=== PATIENT | female | born 1960 | race Caucasian/White ===

== ENCOUNTER 2017-02-03 09:55 | Emergency (ER) | payer BC ==
[2017-02-03] MEDS ORDERED: NS 0.9% 1000 ML* 1,000 ML IV SCH ×2 (10:30→10:45)
[2017-02-03] MEDS ORDERED: Aspirin Low Dose CHEW TAB* 81 MG PO ONE (10:44)
[2017-02-03] MEDS ORDERED: Nitroglycerin TAB 0.4 MG* 0.4 MG TAB SL ONE (10:44)
[2017-02-03 11:23] LABS: Hematocrit 44 % (35-47); Hemoglobin 14.7 g/dl (12.0-16.0); Mean Corpuscular HGB Conc 33 g/dl (31-36); Mean Corpuscular Hemoglobin 30 pg (27-31); Mean Corpuscular Volume 90 fL (80-97); Mean Platelet Volume 10 um3 (7.4-10.4); Red Blood Count 4.89 10^6/ul (4.0-5.4); Red Cell Distribution Width 13 % (10.5-15); White Blood Count 6.6 10^3/ul (3.5-10.8)
[2017-02-03 11:27] LABS: Urine Bilirubin Negative (Negative); Urine Glucose Negative (Negative); Urine Nitrite Negative (Negative)
[2017-02-03 11:43] LABS: Albumin 4.7 g/dL (3.2-5.2); BUN/Creatinine Ratio 22.8 (8-20); C Reactive Protein 5.88 mg/L (< 5.00); Calcium 10.4 mg/dL (8.6-10.3); EGFR African American 97.2 (>60); EGFR Non-African American 75.6 (>60); Globulin 3.5 g/dL (2-4); Magnesium 2.2 mg/dL (1.9-2.7); Total Bilirubin 0.4 mg/dL (0.2-1.0); Total Protein 8.2 g/dL (6.4-8.9)
[2017-02-03] MEDS ORDERED: Iohexol 350* (CONTRAST) 500 ML MDV IV ONE (11:47)
[2017-02-03 12:28] LABS: TSH (Thyroid Stimulating Horm) 1.25 mcIU/mL (0.34-5.60)
[2017-02-03 12:34] LABS: Potassium 3.9 mmol/L (3.5-5.0)
--- NOTE | 2017-02-03 13:26 | RAD ---
INDICATION: Chest pain. COMPARISON: Comparison is made with a prior CT angiogram of the chest from February 03, 2017. TECHNIQUE: Multiple real-time images of the right upper quadrant were obtained. FINDINGS: The gallbladder appear normal. No gallbladder wall thickening or pericholecystic fluid is present. No intra or extrahepatic ductal distention is present. The common bile duct measured 0.4 cm in diameter. The liver is normal in size and increased in echogenicity most consistent with fatty infiltration. There is a small hypoechoic nodule present in the inferior portion of the left hepatic lobe measuring 1.0 x 1.9 x 1.0 cm in size. No correlate is seen on the CT angiogram of the chest of the same day. The pancreas is partially obscured by overlying bowel gas. The right kidney is normal in size without evidence for hydronephrosis. IMPRESSION: 1. NORMAL EXAMINATION OF THE GALLBLADDER. 2. FINDINGS SUGGESTIVE OF HEPATIC STEATOSIS. 3. SMALL HYPOECHOIC NODULE IN THE INFERIOR PORTION OF THE LEFT HEPATIC LOBE POSSIBLY REPRESENTING FOCAL FATTY SPARING ALTHOUGH NONSPECIFIC. RECOMMEND EITHER A FOLLOW-UP MRI OF THE LIVER OR A FOLLOW-UP ULTRASOUND IN 6 MONTHS TIME FOR FURTHER CHARACTERIZATION.
--- NOTE | 2017-02-03 13:29 | RAD ---
Indication: Chest pain, history of breast cancer. Contrast: 74 mL of Omnipaque 350. CTA of the chest was performed with IV contrast administration. Coronal and sagittal reconstructed images were obtained. The pulmonary arterial tree is well opacified. There are no filling defects present to suggest pulmonary embolus. Inferior thyroid lobes are unremarkable. No mediastinal or hilar adenopathy is noted. The heart demonstrates no pericardial effusion. The trachea and major bronchi appear patent. The lung islas demonstrate no evidence of pleural fluid, nodules or masses. The thoracic aorta demonstrates no thoracic aortic aneurysm or aortic dissection. IMPRESSION: No evidence of pulmonary embolus is noted.
--- NOTE | 2017-02-03 14:21 | HP ---
HISTORY AND PHYSICAL -> (Changed to Consultation): DATE OF ADMISSION: 02/03/17 CONSULTING PROVIDER: Kenneth Ortiz MD PRIMARY CARE PHYSICIAN: Dr. Petersen ([place]). CHIEF COMPLAINT: Dull aching right-sided chest pain. HISTORY OF PRESENT ILLNESS: Alma Rosa Díaz is a 56-year-old female with past medical history of hypertension; breast cancer, status post mastectomy, radiation and chemotherapy in 2005, presenting with complaint of right-sided dull aching chest pain that she has had for some time now. She attests that it is most usually stress related. She did over the summer have some sensations in her right upper quadrant abdomen in the lower portion of her bilateral ribcages that was a similar dull ache and she had a bone scan with a [place] breast cancer specialist that was reportedly negative for any acute findings. The patient cannot really attest to why she is coming in today versus last week , last month, or over the last year except stating that she feels like the pain gets worse when she is stressed out and she is not able to handle her stress as well as she has been in the past. She stopped her Wellbutrin about 1 year ago, which she had been taking after the side effect of some of the chemotherapy agents, but she denies any mood disorder or depression, SI, HI. The patient intentionally lost 35 pounds since June 2016 while on a diet. She denies shortness of breath, nausea, vomiting. She has some chronic mid back complaints with some tenderness to palpation in her mid thoracic spine, which has been there for quite some time. She attests to "ear plugging" bilaterally for 1 year, which she attributes to possible seasonal allergies. She denies night sweats. She sleeps restlessly, but denies paroxysmal nocturnal dyspnea or orthopnea. Does not really exercise much, but does not get short of breath during regular daily activities. The patient travels a lot in her job at [employer] including yearly travel to [place], [place] ([place] most recently in [place] most recently, last travel was over the summer. Denies any cough. The patient was evaluated by the emergency room who has ordered a right upper quadrant ultrasound and a CT angiogram of her chest to rule out gallstone pathology, pulmonary embolism, or other malignancy related issues. Initial troponin is negative. EKG, no ischemic changes. She is being admitted to observation status for ACS rule out. PAST MEDICAL HISTORY: Hypertension; right-sided breast cancer, status post partial mastectomy, radiation and chemotherapy (2005). MEDICATIONS: 1. Valsartan 160 mg/25 mg hydrochlorothiazide. 2. Aspirin 81 mg daily. ALLERGIES: She has allergies to ERYTHROMYCIN. SOCIAL HISTORY: Nonsmoker except for a few cigarettes during teenage years. No significant alcohol use. Works at [employer]. Her medical surrogate (pending). FAMILY HISTORY: Dad with prostate cancer. Mother with breast cancer, skin cancer, throat cancer, still alive at age 83. REVIEW OF SYSTEMS: Negative 14-point review of systems except as per HPI. PHYSICAL EXAMINATION GENERAL: No acute distress. VITAL SIGNS: Blood pressure 118/82, satting 100% on room air, respiratory rate 18, heart rate is 73, temperature 97.3. HEENT: Normocephalic, atraumatic. Pupils equally round and reactive to light. Extraocular motions intact. NECK: No cervical lymphadenopathy. PULMONARY: Clear to auscultation bilaterally with no wheezing, rales, or rhonchi. CARDIOVASCULAR: Regular rate and rhythm. No murmurs, rubs, or gallops. ABDOMEN: Soft, nontender, nondistended. No Hickman's sign. No rebound. No guarding. The patient did attest to some discomfort with sonographic right upper quadrant testing. EXTREMITIES: Warm, well perfused. No peripheral edema. NEURO: Tenderness to palpation of mid thoracic spine. SKIN: No rashes. LABORATORY DATA: White count 6.6, hemoglobin 14.7, hematocrit 44, platelets 271. INR 0.85. Sodium 137, potassium 3.9, chloride 101, carbon dioxide 26, BUN 18, creatinine 0.79. Lactic acid 1.6. Calcium is slightly elevated at 10.4, alk phos 130 slightly elevated. CK-MB 6.5. CRP 5.88. Troponin 0.00. Albumin 4.7. Lipase 33. TSH 1.25. Urinalysis within normal limits except low specific gravity of 1.009. IMAGING: Still pending right upper quadrant ultrasound, CTA. ASSESSMENT AND PLAN: Alma Rosa Díaz is a 56-year-old female with past medical history of right-sided breast cancer, hypertension, presenting with right-sided dull achy chest complaints that has been present for many months if not year or more. She is still awaiting her CTA of her chest given her significant travel history, though nothing for several months now and the right upper quadrant ultrasound, this gave gallbladder pathology. Possible slightly elevated T-bili was within normal limits. Symptoms appear stress related. We will follow the above imaging. She is being admitted to observation status for ACS rule out, though she was initially insistent on getting a stress test during this one admission prior to planned travel, but now is attesting that she would prefer to follow up as an outpatient. We may be able to discharge the patient later in the day after repeat troponins and further imaging workup is done with cardiology outpatient followup. Continue her aspirin 81 and valsartan 160/25 mg hydrochlorothiazide tomorrow if she is still in the hospital. She is being admitted to the observation status. We will ask her about her medical surrogate upon return from CT[facility]. She is a full code. ADDENDUM: CTA did not demonstrate evidence of Pulmonary Embolism. Gall bladder ultrasound with normal Gall Bladder; findings suggestive of hepatic steatosis and a small hypoechoic nodule in the inferior portion of the left hepatic lobe possibly representing focal fatty sparing but with recommmended follow-up ultrasound or MRI of liver in 6 months. Pts repeat troponin was negative and she changed her mind, wishing to pursue further cardiac evaluation as an outpatient. Pt was never transferred from the ED room and was discharged by ED physician. [id number]/[facility] #: [id number] HANSEL
[2017-02-03 15:46] VITALS: BP 116/78
--- NOTE | 2017-02-03 16:31 | ED ---
Holland Crews Benjamin, scribed for Kyle Holm MD on 02/03/17 at 1045 . HPI Chest Pain - HPI Summary HPI Summary: 56yo female c/o intermittent mid sternal chest discomfort for weeks that seems to be triggered by stress. Then this Tuesday, pt had an episode of sharp CP in the right side that was more intense than her other episodes of chest discomfort. CP occurred immediately after a stressful episode. Pt states that she has also been having midline upper back pain since then too. Sharp CP is gone now, but pt is still having some chest discomfort. CP did not radiate to neck or arms, and nothing seems to make the chest discomfort better or worse besides stress. Pt also has little leg swelling as baseline, but denies any acute leg swelling. Hx of breast CA and HTN. Pt states her job is very stressful. Denies Abdominal pain, SOB, or dizziness, but reports mild nausea. Pt travels internationally often for her job. Last international travel was this summer. - History of Current Complaint Chief Complaint: EDChestPainROMI Time Seen by Provider: 02/03/17 10:10 Hx Obtained From: Patient Onset/Duration: Started Days Ago - 2 days ago Timing: Lasting Minutes Initial Severity: Moderate Current Severity: Mild Pain Intensity: 5 Pain Scale Used: 0-10 Numeric Chest Pain Location: Right Anterior Chest Pain Radiates: No Character: Sharp/Stabbing - sharp Aggravating Factor(s): Other: - stress Alleviating Factor(s): Nothing Associated Signs and Symptoms: Positive: Nausea, Other: - intermittent chest discomfort. Negative: Shortness of Breath, Swelling, Diaphoresis, Abdominal Pain, Calf Pain/Swelling, Vomiting - Allergy/Home Medications Allergies/Adverse Reactions: Allergies Allergy/AdvReac Type Severity Reaction Status Date / Time Erythromycin Allergy Hives Verified 02/03/17 09:58 Home Medications: Home Medications Valsartan/HCTZ 160/25(NF) [Diovan Hct 160/25(NF)] 1 tab PO DAILY 02/03/17 [ History Confirmed 02/03/17] PMH/Surg Hx/FS Hx/Imm Hx Cardiovascular History: Reports: Hx Hypertension - Cancer History Cancer Type, Location and Year: breast cancer right - Surgical History Surgery Procedure, Year, and Place: partial mastectomy, chemo & radiation Infectious Disease History: Yes Infectious Disease History: Denies: Hx Clostridium Difficile, Hx Hepatitis, Hx Human Immunodeficiency Virus (HIV), Hx of Known/Suspected MRSA, Hx Shingles, Hx Tuberculosis, Hx Known/ Suspected VRE, Hx Known/Suspected VRSA, History Other Infectious Disease, Traveled Outside the [place] in Last 30 Days - Family History Known Family History: Positive: Hypertension - Social History Occupation: Employed Full-time Alcohol Use: None Substance Use Type: Reports: None Smoking Status (MU): Never Smoked Tobacco Review of Systems Constitutional: Negative Negative: Skin Diaphoresis Eyes: Negative ENT: Negative Positive: Chest Pain Negative: Shortness Of Breath Positive: Nausea. Negative: Abdominal Pain Genitourinary: Negative Positive: Myalgia - back pain Skin: Negative Neurological: Negative Psychological: Normal All Other Systems Reviewed And Are Negative: Yes Physical Exam Triage Information Reviewed: Yes Vital Signs On Initial Exam: Initial Vitals Temp Pulse Resp BP Pulse Ox 97.3 F 87 16 142/85 96 02/03/17 09:58 02/03/17 09:58 02/03/17 09:58 02/03/17 09:58 02/03/17 09:58 Vital Signs Reviewed: Yes Appearance: Positive: Well-Appearing, No Pain Distress, Well-Nourished Skin: Positive: Warm, Skin Color Reflects Adequate Perfusion, Dry Head/Face: Positive: Normal Head/Face Inspection Eyes: Positive: EOMI, JAY ENT: Positive: Normal ENT inspection Neck: Positive: Supple, Nontender Respiratory/Lung Sounds: Positive: Clear to Auscultation, Breath Sounds Present Cardiovascular: Positive: RRR Abdomen Description: Positive: Nontender, Soft Bowel Sounds: Positive: Present Musculoskeletal: Positive: Strength/ROM Intact Neurological: Positive: Normal, Sensory/Motor Intact, Alert, Oriented to Person Place, Time Psychiatric: Positive: Affect/Mood Appropriate - Manuel Coma Scale Coma Scale Total: 15 Diagnostics - Vital Signs Vital Signs Temp Pulse Resp BP Pulse Ox 02/03/17 10:32 88 20 98 02/03/17 09:58 97.3 F 87 16 142/85 96 - Laboratory Lab Results: Lab Results 02/03/17 02/03/17 02/03/17 Range/Units 10:25 10:25 10:25 WBC 6.6 (3.5-10.8) 10^3/ul RBC 4.89 (4.0-5.4) 10^6/ul Hgb 14.7 (12.0-16.0) g/dl Hct 44 (35-47) % MCV 90 (80-97) fL MCH 30 (27-31) pg MCHC 33 (31-36) g/dl RDW 13 (10.5-15) % Plt Count 271 (150-450) 10^3/ul MPV 10 (7.4-10.4) um3 Neut % (Auto) 55.0 (38-83) % Lymph % (Auto) 30.3 (25-47) % [place] % (Auto) 8.6 (1-9) % Eos % (Auto) 4.8 (0-6) % Baso % (Auto) 1.3 (0-2) % Absolute Neuts (auto) 3.6 (1.5-7.7) 10^3/ul Absolute Lymphs (auto) 2.0 (1.0-4.8) 10^3/ul Absolute Monos (auto) 0.6 (0-0.8) 10^3/ul Absolute Eos (auto) 0.3 (0-0.6) 10^3/ul Absolute Basos (auto) 0.1 (0-0.2) 10^3/ul Absolute Nucleated RBC 0.01 10^3/ul Nucleated RBC % 0.2 INR (Anticoag Therapy) (0.89-1.11) APTT (26.0-36.3) seconds Sodium 137 (133-145) mmol/L Potassium 3.9 (3.5-5.0) mmol/L Chloride 101 (101-111) mmol/L Carbon Dioxide 26 (22-32) mmol/L Anion Gap 10 (2-11) mmol/L BUN 18 (6-24) mg/dL Creatinine 0.79 (0.51-0.95) mg/dL Est GFR ( Amer) 97.2 (>60) Est GFR (Non-Af Amer) 75.6 (>60) BUN/Creatinine Ratio 22.8 H (8-20) Glucose 85 (70-100) mg/dL Lactic Acid (0.5-2.0) mmol/L Calcium 10.4 H (8.6-10.3) mg/dL Magnesium 2.2 (1.9-2.7) mg/dL Total Bilirubin 0.40 (0.2-1.0) mg/dL AST 31 (13-39) U/L ALT 27 (7-52) U/L Alkaline Phosphatase 130 H (34-104) U/L Total Creatine Kinase 264 H (10-223) U/L CK-MB (CK-2) 6.5 H (0.6-6.3) ng/mL Troponin I 0.00 (<0.04) ng/mL C-Reactive Protein 5.88 H (< 5.00) mg/L B-Natriuretic Peptide ( - 100) pg/mL Total Protein 8.2 (6.4-8.9) g/dL Albumin 4.7 (3.2-5.2) g/dL Globulin 3.5 (2-4) g/dL Albumin/Globulin Ratio 1.3 (1-3) Lipase 33 (11.0-82.0) U/L TSH 1.25 (0.34-5.60) mcIU/mL Urine Color Yellow Urine Appearance Clear Urine pH 6.0 (5-9) Ur Specific [place] 1.009 L (1.010-1.030) Urine Protein Negative (Negative) Urine Ketones Negative (Negative) Urine Blood Negative (Negative) Urine Nitrate Negative (Negative) Urine Bilirubin Negative (Negative) Urine Urobilinogen Negative (Negative) Ur Leukocyte Esterase Negative (Negative) Urine Glucose Negative (Negative) 02/03/17 02/03/17 02/03/17 Range/Units 10:25 10:25 10:25 WBC (3.5-10.8) 10^3/ul RBC (4.0-5.4) 10^6/ul Hgb (12.0-16.0) g/dl Hct (35-47) % MCV (80-97) fL MCH (27-31) pg MCHC (31-36) g/dl RDW (10.5-15) % Plt Count (150-450) 10^3/ul MPV (7.4-10.4) um3 Neut % (Auto) (38-83) % Lymph % (Auto) (25-47) % [place] % (Auto) (1-9) % Eos % (Auto) (0-6) % Baso % (Auto) (0-2) % Absolute Neuts (auto) (1.5-7.7) 10^3/ul Absolute Lymphs (auto) (1.0-4.8) 10^3/ul Absolute Monos (auto) (0-0.8) 10^3/ul Absolute Eos (auto) (0-0.6) 10^3/ul Absolute Basos (auto) (0-0.2) 10^3/ul Absolute Nucleated RBC 10^3/ul Nucleated RBC % INR (Anticoag Therapy) 0.85 L (0.89-1.11) APTT 35.5 (26.0-36.3) seconds Sodium (133-145) mmol/L Potassium (3.5-5.0) mmol/L Chloride (101-111) mmol/L Carbon Dioxide (22-32) mmol/L Anion Gap (2-11) mmol/L BUN (6-24) mg/dL Creatinine (0.51-0.95) mg/dL Est GFR ( Amer) (>60) Est GFR (Non-Af Amer) (>60) BUN/Creatinine Ratio (8-20) Glucose (70-100) mg/dL Lactic Acid 1.6 (0.5-2.0) mmol/L Calcium (8.6-10.3) mg/dL Magnesium (1.9-2.7) mg/dL Total Bilirubin (0.2-1.0) mg/dL AST (13-39) U/L ALT (7-52) U/L Alkaline Phosphatase (34-104) U/L Total Creatine Kinase (10-223) U/L CK-MB (CK-2) (0.6-6.3) ng/mL Troponin I (<0.04) ng/mL C-Reactive Protein (< 5.00) mg/L B-Natriuretic Peptide 8 ( - 100) pg/mL Total Protein (6.4-8.9) g/dL Albumin (3.2-5.2) g/dL Globulin (2-4) g/dL Albumin/Globulin Ratio (1-3) Lipase (11.0-82.0) U/L TSH (0.34-5.60) mcIU/mL Urine Color Urine Appearance Urine pH (5-9) Ur Specific [place] (1.010-1.030) Urine Protein (Negative) Urine Ketones (Negative) Urine Blood (Negative) Urine Nitrate (Negative) Urine Bilirubin (Negative) Urine Urobilinogen (Negative) Ur Leukocyte Esterase (Negative) Urine Glucose (Negative) Result Diagrams: 02/03/17 10:25 02/03/17 10:25 Lab Statement: Any lab studies that have been ordered have been reviewed, and results considered in the medical decision making process. - CT CTA CHEST CT Interpretation: No Acute Changes - no PE CT Interpretation Completed By: Radiologist - ED physician has reviewed this radiology report and agrees. - EKG 1032. Cardiac Rate: NL EKG Rhythm: Sinus Rhythm - 77bpm ST Segment: Normal Ectopy: None - Additional Comments Diagnostic Additional Comments: : US GALL BLADDER IMPRESSION: 1. NORMAL EXAMINATION OF THE GALLBLADDER. 2. FINDINGS SUGGESTIVE OF HEPATIC STEATOSIS. 3. SMALL HYPOECHOIC NODULE IN THE INFERIOR PORTION OF THE LEFT HEPATIC LOBE POSSIBLY REPRESENTING FOCAL FATTY SPARING ALTHOUGH NONSPECIFIC. RECOMMEND EITHER A FOLLOW -UP MRI OF THE LIVER OR A FOLLOW-UP ULTRASOUND IN 6 MONTHS TIME FOR FURTHER CHARACTERIZATION. Re-Evaluation - Re-Evaluation First Eval Re-Evaluation Time: 14:20 Comment: Reviewed pt's EKG, lab, and imaging results. Chest Pain Course/Dx - Course Course Of Treatment: Reviewed pts medication and allergy lists. High Blood pressure noted. Consulted Dr. Ortiz (Hospitalist) at 1138 hour. DISCUSSED ADMISSION WITH THE PATIENT FOR CHEST PAIN. HOSPITALIST SAW PATIENT IN ED. AFTER DICUSSING RESULTS WITH PATIENT, SHE DECLINED ADMISSION. SHE AGREED TO A REPEAT TROPONIN. THIS WAS NEGATIVE; PATIENT STILL PREFERS GO F/U OUT PATIENT WITH HER PMD. SHE WILL RETURN IF WORSE OR QUESTIONS OR CONCERNS. - Diagnoses Provider Diagnoses: Chest pain Discharge - Discharge Plan Condition: Stable Disposition: HOME The documentation as recorded by the Holland graham Benjamin accurately reflects the service I personally performed and the decisions made by me, Kyle Holm MD.
[2017-02-04] MEDS ORDERED: Valsartan/HCTZ 160/25(NF) TAB PO SCH (09:00)
[2017-02-04] MEDS ORDERED: Hydrochlorothiazide TAB* 25 MG PO SCH (09:00)
[2017-02-04] MEDS ORDERED: Valsartan TAB* 160 MG PO SCH (09:00)
[2017-02-04] MEDS ORDERED: Aspirin EC Low Dose* 81 MG TAB.EC PO SCH (09:00)
== END 2017-02-03 16:57 | disposition home or self-care (01) ==
LOC: ED 09:55 → AA 12:25 → UNDOADMOB 12:25 → MEDTELE 12:25 → UNDODISOB 16:30
DX: R07.9 Chest pain, unspecified (principal); I10 Essential (primary) hypertension; Z85.3 Personal history of malignant neoplasm of breast; Z79.899 Other long term (current) drug therapy; Z79.82 Long term (current) use of aspirin; Z88.1 Allergy status to other antibiotic agents
CPT/HCPCS: 36415; 71275; 76705; 80053; 81003; 82550; 82553; 83605; 83690; 83735; 83880; 84443; 84484; 85025; 85610; 85730; 86140; 93005; 99283; G0378; Q9967